=== PATIENT | female | born 1970 | race Two or more races ===

== ENCOUNTER 2025-08-01 06:18 | Emergency (ER) | payer OTHER ==
[~2025-08-01] VITALS: Ht 172.7 cm; Wt 86.4 kg
--- NOTE | 2025-08-01 06:28 | ECG ---
[facility] Test Date: 2025-08-01 Test Time: 06:22:10 Pat Name: CORA VICTOR Department: Room: Gender: F [employer] Developer: BETO : 1970 Requested By: ULYSSES CHEN Order Number: [id number] Reading MD: Paul Montano Measurements Intervals [place] Rate: 76 P: 61 NM: 193 QRS: 47 QRSD: 91 T: 72 QT: 410 QTc: 462 Interpretive Statements Sinus rhythm Abnormal R-wave progression, early transition Electronically Signed On 08-04-2025 10:23:45 PDT by Paul Montano Please click the below link to view image of tracing.
--- NOTE | 2025-08-01 06:46 | ED.PDOC ---
History of Present Illness HPI Comments 55-year-old female BIBA with no prior medical history associated with a chief complaint of right-sided abdominal cramping. Patient reports on having right- sided abdominal cramping and distention since 8:00 p.m. last night. Denies chills, fever, N/V/D, SOB, CP. No other associated symptoms, modifiers, recent injuries or sick contacts present at this time. Chief Complaint: Abdominal Pain Time Seen by MD: 06:15 Reviewed Notes: Nurses Notes, Medications, Allergies Allergies: Coded Allergies: Amoxicillin (Verified Allergy, Unknown, 08/01/25) Enoxaparin (Verified Allergy, Unknown, 08/01/25) Gabapentin (Verified Allergy, Unknown, 08/01/25) Information Source: Patient Mode of Arrival: EMS Severity: Moderate Timing: Hours Duration: Since onset, Hours Prehospital treatment: None Past Medical History PAST MEDICAL HISTORY: Denies Surgical History: Denies all surgeries REFERRAL MANAGEMENT LIAISON History: No Pertinent REFERRAL MANAGEMENT LIAISON History Family History Family History: Reviewed,noncontributory to illness, Unknown Social History Smoker: Non-Smoker Alcohol: Denies ETOH Use Drugs: Denies Drug Use Lives In: Home Constitutional: denies: chills, diaphoresis, fatigue, fever, malaise, sweats, weakness, others EENTM: denies: blurred vision, double vision, ear bleeding, ear discharge, ear drainage, ear pain, ear ringing, eye pain, eye redness, hearing loss, mouth pain, mouth swelling, nasal discharge, nose bleeding, nose congestion, nose pain, photophobia, tearing, throat pain, throat swelling, voice changes, others Respiratory: denies: cough, hemoptysis, orthopnea, SOB at rest, shortness of breath, SOB with excertion, stridor, wheezing, others Cardiovascular: denies: chest pain, dizzy spells, diaphoresis, Dyspnea on exertion, edema, irregular heart beat, left arm pain, lightheadedness, palpitations, PND, syncope, others Gastrointestinal: reports: abdominal pain; denies: abdomen distended, blood streaked bowels, constipated, diarrhea, dysphagia, difficulty swallowing, hematemesis, melena, nausea, poor appetite, poor fluid intake, rectal bleeding, rectal pain, vomiting, others Genitourinary: denies: abnormal vagina bleeding, burning, dyspareunia, dysuria, flank pain, frequency, hematuria, incontinence, pain, , vagina discharge, urgency, others Neurological: denies: dizziness, fainting, headache, left sided numbness, left sided weakness, numbness, paresthesia, pre-existing deficit, right sided numbness, right sided weakness, seizure, speech problems, tingling, tremors, weakness, others Musculoskeletal: denies: back pain, gout, joint pain, joint swelling, muscle pain, muscle stiffness, neck pain, others Integumetry: denies: bruises, change in color, change in hair/nails, dryness, laceration, lesions, lumps, rash, wounds, others Allergic/Immunocompromised: denies: Difficulty Healing, Frequent Infections, Hives, Itching, others Hematologic/Lymphatic: denies: anemia, blood clots, easy bleeding, easy bruising, swollen glands, others Endocrine: denies: excessive hunger, excessive sweating, excessive thirst, excessive urination, flushing, intolerance to cold, intolerance to heat, unexplained weight gain, unexplained weight loss, others Psychiatric: denies: anxiety, bipolar disorder, depression, hopeless, panic disorder, schizophrenia, sleepless, suicidal, others All Other Systems: Reviewed and Negative Physical Exam General Appearance: No Apparent Distress, Normal HEENT: Normal ENT Inspection, Pharynx Normal, TMs Normal Neck: Full Range of Motion, Non-Tender, Normal, Normal Inspection Respiratory: Chest Non-Tender, Lungs Clear, No Accessory Muscle Use, No Respiratory Distress, Normal Breath Sounds Cardiovascular: No Edema, No JVD, No Murmur, No Gallop, Normal Peripheral Pulses, Regular Rate/Rhythm Breast Exam: Deferred Gastrointestinal: No Organomegaly, No Pulsatile Mass, Normal Bowel Sounds, Soft, Suprapubic (Suprapubic tenderness), Tenderness (Suprapubic tenderness) Genitalia: Deferred Pelvic: Deferred Rectal: Deferred Extremities: No calf tenderness, Normal capillary refill, Normal inspection, Normal range of motion, Non-tender, No pedal edema Musculoskeletal : Apperance: Normal Neurologic: Alert, supervisor tubing II-XII nml as Tested, No Motor Deficits, Normal Affect, Normal Mood, No Sensory Deficits Cerebellar Function: Normal Reflexes: Normal Skin: Dry, Normal Color, Warm Lymphatic: No Adenopathy Was a procedure done? Was a procedure done?: No EKG EKG : Pulse Rate (adult): 76 [place]: Normal Cardiac Rhythm: NSR Block: None Hypertrophy: None ST: Normal Differential Dx Considerations may include: Acute appendicitis, acute cholecystitis, gastritis, gastroenteritis X-Ray, Labs, Meds, VS Vital Signs Date Time Temp Pulse Resp B/P (MAP) Pulse Ox O2 Delivery O2 Flow Rate FiO2 08/01/25 17:25 98.0 64 18 136/93 (107) 94 98.0 08/01/25 16:39 97.8 61 18 140/72 (94) 96 97.8 08/01/25 14:51 62 16 129/72 08/01/25 14:21 64 17 138/90 08/01/25 12:47 67 18 94 Room Air* 0 21 08/01/25 12:47 97.9 67 18 138/81 (100) 94 97.9 08/01/25 08:07 77 16 132/77 08/01/25 07:37 78 16 148/72 08/01/25 06:46 76 08/01/25 06:37 98.0 80 14 155/85 98 98.0 08/01/25 06:22 76 Lab Test 08/01/25 06:41 Range/Units White Blood Count 4.6 4.4-10.8 10^3/uL Red Blood Count 4.46 4.0-5.20 10^6/uL Hemoglobin 12.6 12.2-16.2 g/dL Hematocrit 37.5 36.0-46.0 % Mean Corpuscular Volume 84.1 80.0-100.0 fL Mean Corpuscular Hemoglobin 28.3 28.0-32.0 pg Mean Corpuscular Hemoglobin Concent 33.6 32.0-36.0 g/dL Red Cell Distribution Width 14.9 H 11.8-14.3 % Platelet Count 250 140-450 10^3/uL Mean Platelet Volume 8.1 6.9-10.8 fL Neutrophils (%) (Auto) 75.4 37.0-80.0 % Lymphocytes (%) (Auto) 19.7 10.0-50.0 % Monocytes (%) (Auto) 4.5 0.0-12.0 % Eosinophils (%) (Auto) 0.1 0.0-7.0 % Basophils (%) (Auto) 0.3 0.0-2.0 % Neutrophils # (Auto) 3.5 1.6-8.6 10 ^3/uL Lymphocytes # (Auto) 0.9 0.4-5.4 10 ^3/uL Monocytes # (Auto) 0.2 0-1.3 10 ^3/uL Eosinophils # (Auto) 0 0-0.8 10 ^3/uL Basophils # (Auto) 0 0-0.2 10 ^3/uL Nucleated Red Blood Cells 0.1 % Sodium Level 140 136-145 mmol/L Potassium Level 3.7 3.5-5.1 mmol/L Chloride Level 103 98-107 mmol/L Carbon Dioxide Level 26 20-31 mmol/L Anion Gap 11 5-15 Blood Urea Nitrogen 10 9-23 mg/dL Creatinine 0.83 0.550-1.02 mg/dL Glomerular Filtration Rate Calc 82 >90 mL/min BUN/Creatinine Ratio 12.0 10.0-20.0 Serum Glucose 101 74-106 mg/dL Calcium Level 9.3 8.7-10.4 mg/dL Total Bilirubin 0.8 0.2-1.0 mg/dL Direct Bilirubin 0.3 <0.3 mg/dL Aspartate Amino Transferase (AST) 84 H 13-40 U/L Alanine Aminotransferase (ALT) 50 H 7-40 U/L Alkaline Phosphatase 85 46-116 U/L Total Protein 7.8 5.7-8.2 g/dL Albumin 4.6 3.2-4.8 g/dL Lipase 34 12-53 U/L Time of 1ST Reevaluation: 06:45 Reevaluation 1ST: Unchanged Patient Education/Counseling: Diagnosis, Treatment, Prognosis Family Education/Counseling: No Family Present SEPSIS Sepsis Screen Physician Orders Ct Ab Pel With Iv Con Only (08/01/25 08:35) Electrocardigram (08/01/25 06:25) Gallbladder (08/01/25 10:45) Imaging Transfer Request (08/01/25 15:23) Vital Signs Date Time Temp Pulse Resp B/P (MAP) Pulse Ox O2 Delivery O2 Flow Rate FiO2 08/01/25 17:25 98.0 64 18 136/93 (107) 94 98.0 08/01/25 16:39 97.8 61 18 140/72 (94) 96 97.8 08/01/25 14:51 62 16 129/72 08/01/25 14:21 64 17 138/90 08/01/25 12:47 67 18 94 Room Air* 0 21 08/01/25 12:47 97.9 67 18 138/81 (100) 94 97.9 08/01/25 08:07 77 16 132/77 08/01/25 07:37 78 16 148/72 08/01/25 06:46 76 08/01/25 06:37 98.0 80 14 155/85 98 98.0 08/01/25 06:22 76 Laboratory Tests Test 08/01/25 06:41 White Blood Count 4.6 10^3/uL (4.4-10.8) Departure 1 Departure Time of Disposition: 00:42 (Patient presented with abdominal pain that was concerning for possible appendicits, gastritis, cholecystitis, colitis, gastroenteritis, sbo, or orther possible surgical emergency. Data: 1. I ordered and reviewed the result of at least 3 labs including a CBC, BMP, and Urinalysis. 2. I independently interpreted the following tests: CT Abdomen and Pelvis is concerning for acute cholecystitis .Risk:This patient has a high risk of morbidity due to further diagnostic testing or treatment and may suffer from an acute abdominal process disorder. Workup reveals concern for acute cholecystitis and patient should be admitted for further workup. and possible expert consultation. Patient accepted to [facility] as a transfer) Impression: Primary Impression: Acute cholecystitis Additional Impression: Intractable abdominal pain Disposition: ADMITTED INPATIENT Admit to: Med Surg Condition: Serious Critical Care Note Critical Care Time?: Yes Critical care comment: Intractable abdominal pain Authorized and Performed by: Ulysses Galeano MD Total critical care time: Approximately 36 minutes Due to a high probability of clinically significant, life threatening deterio ration, the patient required my highest level of preparedness to intervene emergently and I personally spent this critical care time directly and personally managing the patient. This critical care time included obtaining a history; examining the patient; pulse oximetry; ordering and review of studies; arranging urgent treatment with development of a management plan; evaluation of patient's response to treatment; frequent reassessment; and, discussions with other providers. This critical care time was performed to assess and manage the high probability of imminent, life-threatening deterioration that could result in multi-organ failure. It was exclusive of separately billable procedures and treating other patients and teaching time. Please see my other sections and the rest of the note for further information on patient assessment and treatment. Stability Stability form required: No I personally scribed for ULYSSES GALEANO MD ([email or web address]) on 08/01/25 at 06:46. Electronically submitted by Stone Lo ([email or web address]). ULYSSES GALEANO MD Aug 01, 2025 06:46
[2025-08-01 07:28] LABS: Hematocrit 37.5 % (36.0-46.0); Hemoglobin 12.6 g/dL (12.2-16.2); Mean Corpuscular Hemoglobin 28.3 pg (28.0-32.0); Mean Corpuscular Volume 84.1 fL (80.0-100.0); Nucleated Red Blood Cells % 0.1 %
[2025-08-01 07:30] LABS: Chloride 103 mmol/L (98-107); Potassium 3.7 mmol/L (3.5-5.1); Sodium 140 mmol/L (136-145)
[2025-08-01 07:31] LABS: Anion Gap 11 (5-15); Calcium 9.3 mg/dL (8.7-10.4); Carbon Dioxide 26 mmol/L (20-31)
[2025-08-01 07:36] LABS: BUN/Creatinine Ratio 12.0 (10.0-20.0); Blood Urea Nitrogen 10 mg/dL (9-23); Glucose 101 mg/dL (74-106)
[2025-08-01] MEDS: MORPHINE SULFATE 4 MG/ML SYR/VIAL IV ONE ×2 (07:37→14:21)
[2025-08-01] MEDS: ONDANSETRON HCL 4 MG/2 ML VIAL IV ONE ×2 (07:37→14:21)
[2025-08-01] MEDS: SODIUM CHLORIDE 0.9% 1,000 ML IV ONE (07:38)
[2025-08-01] MEDS: IOHEXOL 300 MG/ML 100ML BOTTLE IJ ONE (08:48)
--- NOTE | 2025-08-01 09:23 | DVH ---
CT CT AB PEL WITH IV CON ONLY INDICATION: abdominal pain EXAM DATE: 08/01/2025 08:37 AM COMPARISON: None RADIATION DOSE: CTDIvol: 10.42 mGy, DLP: 499.17 mGy*cm PROCEDURE: Helical CT images were obtained of the abdomen and pelvis with IV contrast Sagittal and co ginette reconstructions are provided. ORAL CONTRAST: None. ADDITIONAL IMAGES / REFORMATS: None All CT s cans at this medical facility are performed using dose modulation techniques as appropriate to a perf ormed exam including the following: Automated exposure control was utilized; adjustment of the MA and /or KV according to patient size; and use of iterative reconstruction technique. FINDINGS: LUNG BASE: Normal. LIVER: 1.8 cm peripherally enhancing left hepatic lesion is incompletely characterized but could be a hemangioma. GALLBLADDER AND BILIARY TREE: Distended gallbladder with trace pericholecystic fluid. No intra- or ex trahepatic biliary ductal dilation. PANCREAS: Normal. SPLEEN: Normal. BOWEL: Enlarged appendix measures up to 1.5 cm in diameter could be an appendiceal mucocele. ADRENALS: Normal. KIDNEYS AND URETER: Multiple subcentimeter fat density lesions in the right kidney could be small ang iomyelolipomas. BLADDER: Normal. REPRODUCTIVE ORGANS: Multiple small uterine fibroids measures up to 1.5 cm. LYMPH NODES:No lymphadenopathy. PERITONEUM: No ascites or free air. No other fluid collection. VESSELS: Scattered atherosclerotic calcifications are noted. RETROPERITONEUM: Normal. ABDOMINAL WALL: Normal. BONES: Scattered osseous degenerative changes are noted. Scaral screw appears intact. IMPRESSION: Distended gallbladder with trace pericholecystic fluid could be seen with cholecystitis. Consider ab dominal US for evaluation. 1.8 cm peripherally enhancing left hepatic lesion is incompletely characterized but could be a chivo ioma. Enlarged appendix measures up to 1.5 cm in diameter could be an appendiceal mucocele. Neoplasm not ex cluded. Multiple small uterine fibroids measures up to 1.5 cm.
--- NOTE | 2025-08-01 11:42 | DVH ---
INDICATION: better evalute ct findings, liver mass TECHNIQUE: Multiple real-time sonographic images were obtained of the right upper quadrant. COMPARISON: 08/01/25 FINDINGS: The liver demonstrates increased echotexture without focal mass lesions. The liver measures 18 cm. There is no intrahepatic or extrahepatic ductal dilatation. The common duct measures 8 mm. The gallbladder is without evidence of stone or sludge. Multiple gallbladder polyps measuring up to 0.5 cm. The gallbladder wall measures 5 mm and is thickened. The right kidney measures 10.8 cm. The right kidney is normal in contour, size, and shape. The echog enicity is normal. There is no hydronephrosis. There is a echogenic mass in the right kidney measurin g 1.3 cm. The pancreas is not well visualized due to overlying bowel gas. IMPRESSION: Liver mass seen on prior CT is not seen on currect exam. Recommend further evaluation with mult-phase MRI liver phase. Gallbladder polyps measuring up to 0.5 cm. Hepatic steatosis and hepatomegaly. Gallbladder wall thickening measuring up to 0.5 cm which is non-specific. There is a echogenic mass in the right kidney measuring 1.3 cm. 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 FOLLOW UP RECOMMENDATIONS: Extremely low-risk polyps (pedunculated pihv-ld-pks-wall or thin stalk): <9 mm: no follow-up (FU) 10-14 mm: FU at 6, 12 and 24 months > 15 mm: surgical consult Low-risk polyps (pedunculated with a thick or wide stalk, or sessile): < 6 mm: no follow-up 7-9 mm follow-up ultrasound at 12 months 10-14 mm: follow-up ultrasound at 6, 12, 24, and 36 months vs surgical consult > 15 mm: surgical consult Intermediate risk (focal wall-thickening >4mm adjacent to polyp): < 6 mm: FU US at 6, 12, 24, 36 months vs surgical consult > 7 mm: surgical consult Lacie Bui, Augustus C, Gwendolyn J et al. Management of Incidentally Detected Gallbladder Polyps: Society of Radiologists in Ultrasound Consensus Conference Recommendations. Radiology. 2021;:[id number].
[2025-08-01 12:47] VITALS: PULSE 67; RESP 18; O2SAT 94
[2025-08-01 14:47] LABS: Albumin 4.6 g/dL (3.2-4.8); Alkaline Phosphatase 85.0 U/L (46-116); Bilirubin, Direct 0.3 mg/dL (<0.3); Bilirubin, Total 0.8 mg/dL (0.2-1.0); Total Protein 7.8 g/dL (5.7-8.2)
[2025-08-01 14:49] LABS: Alanine Aminotransferase 50.0 U/L (7-40)
[2025-08-01 14:59] LABS: Lipase 34.0 U/L (12-53)
[2025-08-01 17:25] VITALS: BP 136/93; PULSE 64; RESP 18; TEMP 98; O2SAT 94
== END 2025-08-01 17:44 | disposition short-term general hospital (02) ==
LOC: ER 06:18 → EDBD 06:18 → ER 17:44
DX: R10.9 Unspecified abdominal pain (principal); R14.0 Abdominal distension (gaseous)
CPT/HCPCS: 36415; 74177; 76705; 80048; 80076; 83690; 85025; 93005; 96361; 96374; 96375; 96376; 99285; J2270; J2405; J7030; Q9967

== ENCOUNTER 2025-08-12 09:08 | Emergency (ER) | payer OTHER ==
[~2025-08-12] VITALS: Ht 172.7 cm; Wt 84.4 kg
[2025-08-12 09:10] VITALS: BP 132/76; PULSE 82; RESP 16; TEMP 98.5; O2SAT 99
--- NOTE | 2025-08-12 09:44 | ED.PDOC ---
GI ASSESSMENT HPI Comments 55-year-old female who presents to the ED with a chief complaint of abdominal pain onset 2 weeks. Patient was seen in this ED on 08/01/25, was transferred to [facility] for possible appendicitis. Patient was admitted at [facility] for 5 days, was discharged with a prescription of morphine. Patient states she has been experiencing upper abdominal pain as well as diffused cramping sensation, black loose stool movement, nausea. Denies any PMHx as well as vomiting, hematemesis, fever, chills, chest pain, shortness of breath, headache, dizziness, weakness, dysuria, hematuria. No other symptoms or modifying factors present at this time. Chief Complaint: Abdominal Pain Time Seen by MD: 09:40 Reviewed Notes: Medications, Allergies Allergies: Coded Allergies: Amoxicillin (Verified Allergy, Unknown, 08/01/25) Enoxaparin (Verified Allergy, Unknown, 08/01/25) Gabapentin (Verified Allergy, Unknown, 08/01/25) Information Source: Patient Mode of Arrival: Ambulatory Timing: Weeks Duration: Since onset Prehospital treatment: None Quality: Cramping, Sharp Vomitus: None Stool: Loose, Black Severity: Moderate Recent: None Recent Hx of: None Pain Location: Diffuse, RUQ, LUQ Modifying Factors: Nothing Associated sign and symptoms: Nausea, Diarrhea, Abdominal Pain Past Medical History PAST MEDICAL HISTORY: Denies Surgical History: Denies all surgeries SUPERVISOR RESPIRATORY History: No Pertinent SUPERVISOR RESPIRATORY History Family History Family History: Reviewed,noncontributory to illness, Unknown Social History Smoker: Non-Smoker Alcohol: Denies ETOH Use Drugs: Denies Drug Use Lives In: Home Constitutional: denies: chills, diaphoresis, fatigue, fever, malaise, sweats, weakness, others EENTM: denies: blurred vision, double vision, ear bleeding, ear discharge, ear drainage, ear pain, ear ringing, eye pain, eye redness, hearing loss, mouth pain, mouth swelling, nasal discharge, nose bleeding, nose congestion, nose pain, photophobia, tearing, throat pain, throat swelling, voice changes, others Respiratory: denies: cough, hemoptysis, orthopnea, SOB at rest, shortness of breath, SOB with excertion, stridor, wheezing, others Cardiovascular: denies: chest pain, dizzy spells, diaphoresis, Dyspnea on exertion, edema, irregular heart beat, left arm pain, lightheadedness, palpitations, PND, syncope, others Gastrointestinal: reports: abdominal pain, diarrhea, nausea; denies: abdomen distended, blood streaked bowels, constipated, dysphagia, difficulty swallowing, hematemesis, melena, poor appetite, poor fluid intake, rectal bleeding, rectal pain, vomiting, others Genitourinary: denies: abnormal vagina bleeding, burning, dyspareunia, dysuria, flank pain, frequency, hematuria, incontinence, pain, , vagina discharge, urgency, others Neurological: denies: dizziness, fainting, headache, left sided numbness, left sided weakness, numbness, paresthesia, pre-existing deficit, right sided numbness, right sided weakness, seizure, speech problems, tingling, tremors, weakness, others Musculoskeletal: denies: back pain, gout, joint pain, joint swelling, muscle pain, muscle stiffness, neck pain, others Integumetry: denies: bruises, change in color, change in hair/nails, dryness, laceration, lesions, lumps, rash, wounds, others Allergic/Immunocompromised: denies: Difficulty Healing, Frequent Infections, Hives, Itching, others Hematologic/Lymphatic: denies: anemia, blood clots, easy bleeding, easy bruis ing, swollen glands, others Endocrine: denies: excessive hunger, excessive sweating, excessive thirst, exc essive urination, flushing, intolerance to cold, intolerance to heat, unexplained weight gain, unexplained weight loss, others Psychiatric: denies: anxiety, bipolar disorder, depression, hopeless, panic disorder, schizophrenia, sleepless, suicidal, others All Other Systems: Reviewed and Negative Physical Exam General Appearance: Moderate Distress, Normal HEENT: Normal ENT Inspection, Pharynx Normal, TMs Normal Neck: Full Range of Motion, Non-Tender, Normal, Normal Inspection Respiratory: Chest Non-Tender, Lungs Clear, No Accessory Muscle Use, No Respiratory Distress, Normal Breath Sounds Cardiovascular: No Edema, No JVD, No Murmur, No Gallop, Normal Peripheral Pulses, Regular Rate/Rhythm Breast Exam: Deferred Gastrointestinal: No Organomegaly, Non Tender, No Pulsatile Mass, Normal Bowel Sounds, Soft Genitalia: Deferred Pelvic: Deferred Rectal: Deferred Extremities: No calf tenderness, Normal capillary refill, Normal inspection, Normal range of motion, Non-tender, No pedal edema Musculoskeletal : Apperance: Normal Neurologic: Alert, aircraft ordnance technician II-XII nml as Tested, No Motor Deficits, Normal Affect, Normal Mood, No Sensory Deficits Cerebellar Function: Normal Reflexes: Normal Skin: Dry, Normal Color, Warm Peripheral Pulses: 3+ Radial (R), 3+ Radial (L) Lymphatic: No Adenopathy Was a procedure done? Was a procedure done?: No GI differential Dx Differential Diagnosis: Constipation, Diverticular disease, Esophagitis, Gastritis/PUD, Gastroenteritis X-Ray, Labs, Meds, VS Vital Signs Date Time Temp Pulse Resp B/P (MAP) Pulse Ox O2 Delivery O2 Flow Rate FiO2 08/12/25 09:10 98.5 82 16 132/76 99 98.5 Patient alert. Complaining of GI symptoms. Had similar symptoms a week ago for which she had a full workup done here in transferred to [facility] facility. Vitals stable. Abdomen is soft nontender. Ambulating. No sign of any distress. No acute process. No leg swelling. No shortness a breath. No chest pain. Explained to the patient that we will be calling [facility] for transfer since all the workup has been done last time. She was ordered labs during this visit. She is very upset and does not want to get transferred and left stating that she will handed herself. She was not in any danger when she was leaving the ER. Will call to see how she is doing. Spoke with [facility] physician [phone]. Time of 1ST Reevaluation: 10:10 Reevaluation 1ST: Unchanged Patient Education/Counseling: Diagnosis, Treatment, Prognosis Family Education/Counseling: No Family Present SEPSIS Sepsis Screen Date sepsis recognized/suspect: Aug 12, 2025 Time Sepsis recognized/suspect: 912 Recent Procedure: No (N) On Antibiotic Therapy: No Respiratory Rate >20: No Heart Rate >90: No Temp<36 C (96.8 F) or >38.3 C: No SBP <90 or MAP <65 mmHG: No New Acute Mental Status Change: No Is the patient on CPAP, BIPAP,: No Physician Orders Urinalysis (08/12/25 10:01) Vital Signs Date Time Temp Pulse Resp B/P (MAP) Pulse Ox O2 Delivery O2 Flow Rate FiO2 08/12/25 09:10 98.5 82 16 132/76 99 98.5 Departure 1 Departure Time of Disposition: 11:05 Impression: Primary Impression: Intractable abdominal pain Disposition: LEFT AWOL/ELOPED Condition: Good Critical Care Note Critical Care Time?: No Stability Stability form required: No Heart Score Heart Score: Heart Score Response (Comments) Value History N/A 0 EKG N/A 0 Age N/A 0 Risk Factors N/A 0 Troponin N/A 0 Total 0 I personally scribed for YIMI JOHNSON MD ([email or web address]) on 08/12/25 at 09:44. Electronically submitted by Eladia Blackwell ([email or web address]). YIMI JOHNSON MD Aug 12, 2025 09:44
== END 2025-08-12 11:05 | disposition left against medical advice (07) ==
LOC: ER 09:08
DX: R10.84 Generalized abdominal pain (principal); Z79.899 Other long term (current) drug therapy; Z88.0 Allergy status to penicillin